=== PATIENT | male | born 1985 | race Two or more races ===

== ENCOUNTER 2024-01-17 13:58 | Inpatient (IN) | payer OTHER ==
[~2024-01-17] VITALS: Ht 175.3 cm; Wt 89.0 kg
[2024-01-17] MEDS ORDERED: ONDANSETRON HCL 4 MG/2 ML VIAL IV PRN (18:30)
[2024-01-17] MEDS ORDERED: HYDROcodone-ACET 5/325MG TAB PO PRN (18:30)
[2024-01-17] MEDS ORDERED: ACETAMINOPHEN 325 MG TAB PO PRN (18:30)
[2024-01-17] MEDS ORDERED: DOCUSATE SOD 100 MG CAP PO PRN (18:30)
[2024-01-17] MEDS ORDERED: SUCR1TAB31 OR (18:43)
[2024-01-17] MEDS ORDERED: OMEP20TA PO (18:43)
[2024-01-17 19:00] VITALS: BP 116/84; PULSE 71; RESP 16; TEMP 97.6; O2SAT 99
[2024-01-17 19:22] LABS: Basophils # (auto) 0 10 ^3/uL (0-0.2); Basophils % (auto) 0.7 % (0.0-2.0); Eosinophils # (auto) 0.2 10 ^3/uL (0-0.8); Eosinophils % (auto) 3.5 % (0.0-7.0); Hematocrit 28.7 % (41.0-53.0); Lymphocytes # (auto) 1.5 10 ^3/uL (0.4-5.4); Lymphocytes % (auto) 28.8 % (10.0-50.0); Mean Corpuscular Hemoglobin 31.4 pg (28.0-32.0); Mean Corpuscular Hgb Conc. 34.9 g/dL (32.0-36.0); Monocytes # (auto) 0.4 10 ^3/uL (0-1.3); Monocytes % (auto) 8.2 % (0.0-12.0); Neutrophils % (auto) 58.8 % (37.0-80.0); Nucleated Red Blood Cells % 0.3 %; Red Blood Cells 3.19 10^6/uL (4.5-5.90); Red Cell Distribution Width 12.9 % (11.8-14.3); White Blood Cell 5.1 10^3/uL (4.4-10.8)
[2024-01-17 19:45] LABS: Alanine Aminotransferase 15 U/L (7-40); Alkaline Phosphatase 49 U/L (46-116); Anion Gap 6 (5-15); Aspartate Aminotransferase 28 U/L (13-40); BUN/Creatinine Ratio 16.9 (10.0-20.0); Blood Urea Nitrogen 15 mg/dL (9-23); Calcium 8.9 mg/dL (8.7-10.4); Carbon Dioxide 24 mmol/L (20-30); Chloride 108 mmol/L (98-107); Glucose 87 mg/dL (74-106); Potassium 3.5 mmol/L (3.5-5.1); Sodium 138 mmol/L (136-145)
[2024-01-17 19:46] LABS: Bilirubin, Total 0.4 mg/dL (0.2-1.0); Total Protein 5.9 g/dL (5.7-8.2)
[2024-01-17 20:00] VITALS: PULSE 71; RESP 16; O2SAT 99
[2024-01-17 21:00] VITALS: BP 120/81; PULSE 86; RESP 17; TEMP 86; O2SAT 97
[2024-01-17] MEDS: SODIUM CHLOR 0.9% PF (SALINE LOCK) 10ML VIAL/SYR IV SCH (22:10)
[2024-01-17] MEDS: LACTATED RINGER'S 1,000 ML IV SCH (22:21)
[2024-01-17] MEDS: PANTOPRAZOLE 40 MG/10 ML VIAL INJ IV SCH (22:22)
[2024-01-18] VITALS (8 sets, daily range): BP systolic 106–138; BP diastolic 61–75; PULSE 58–84; RESP 17–19; TEMP 97.4–98.3; O2SAT 97–100
[2024-01-18 09:46] LABS: Urine Bacteria None Seen /hpf (None Seen)
[2024-01-18 10:02] LABS: Urine Blood Negative /uL (Negative); Urine Clarity Clear (Clear); Urine Color Yellow (Yellow); Urine Mucus FEW (None Seen); Urine Protein, UAD Negative (Negative); Urine Specific Gravity 1.022 (1.001-1.035); Urine Urobilinogen Normal (Negative); Urine WBC 1 /hpf (0 - 3)
[2024-01-18 12:32] LABS: Basophils # (auto) 0 10 ^3/uL (0-0.2); Basophils % (auto) 0.8 % (0.0-2.0); Eosinophils # (auto) 0.1 10 ^3/uL (0-0.8); Eosinophils % (auto) 3.1 % (0.0-7.0); Hematocrit 27.1 % (41.0-53.0); Hemoglobin 9.4 g/dL (13.5-17.5); Lymphocytes # (auto) 1.1 10 ^3/uL (0.4-5.4); Mean Corpuscular Hemoglobin 31.6 pg (28.0-32.0); Mean Corpuscular Hgb Conc. 34.8 g/dL (32.0-36.0); Mean Corpuscular Volume 90.6 fL (80.0-100.0); Monocytes # (auto) 0.2 10 ^3/uL (0-1.3); Monocytes % (auto) 5.6 % (0.0-12.0); Neutrophils # (auto) 2.4 10 ^3/uL (1.6-8.6); Neutrophils % (auto) 62.5 % (37.0-80.0); Nucleated Red Blood Cells % 0.2 %; Red Blood Cells 2.99 10^6/uL (4.5-5.90); Red Cell Distribution Width 13.2 % (11.8-14.3); White Blood Cell 3.8 10^3/uL (4.4-10.8)
[2024-01-18] MEDS: IRON SUCROSE COMPLEX 100 ML IV SCH (16:27)
[2024-01-19] VITALS (8 sets, daily range): BP systolic 103–131; BP diastolic 59–78; PULSE 78–92; RESP 18–19; TEMP 97.8–99; O2SAT 94–100
[2024-01-19 06:55] LABS: Chloride 109 mmol/L (98-107); Potassium 3.5 mmol/L (3.5-5.1); Sodium 142 mmol/L (136-145)
[2024-01-19 06:56] LABS: Anion Gap 6 (5-15); Carbon Dioxide 27 mmol/L (20-30)
[2024-01-19 06:57] LABS: Calcium 8.9 mg/dL (8.7-10.4)
[2024-01-19 06:58] LABS: Basophils # (auto) 0 10 ^3/uL (0-0.2); Basophils % (auto) 0.7 % (0.0-2.0); Eosinophils # (auto) 0.1 10 ^3/uL (0-0.8); Eosinophils % (auto) 3.2 % (0.0-7.0); Hematocrit 26.7 % (41.0-53.0); Hemoglobin 9.5 g/dL (13.5-17.5); Lymphocytes # (auto) 1.4 10 ^3/uL (0.4-5.4); Lymphocytes % (auto) 29.9 % (10.0-50.0); Mean Corpuscular Hgb Conc. 35.5 g/dL (32.0-36.0); Monocytes # (auto) 0.4 10 ^3/uL (0-1.3); Monocytes % (auto) 8.5 % (0.0-12.0); Neutrophils # (auto) 2.7 10 ^3/uL (1.6-8.6); Neutrophils % (auto) 57.7 % (37.0-80.0); Nucleated Red Blood Cells % 0.6 %; Red Blood Cells 2.96 10^6/uL (4.5-5.90); Red Cell Distribution Width 12.8 % (11.8-14.3); White Blood Cell 4.6 10^3/uL (4.4-10.8)
[2024-01-19 07:01] LABS: BUN/Creatinine Ratio 6.5 (10.0-20.0); Blood Urea Nitrogen 7 mg/dL (9-23); Glucose 91 mg/dL (74-106)
[2024-01-19] MEDS ORDERED: FLUMAZENIL 0.1 MG/ML INJ 10ML MDV IV ONE (09:07)
[2024-01-19] MEDS ORDERED: NALOXONE HCL 0.4 MG/ML VIAL ONE (09:07)
[2024-01-19] MEDS ORDERED: fentaNYL CITRATE 100 MCG/2 ML VL ONE (10:59)
[2024-01-19] MEDS ORDERED: KETAMINE 50mg/ML 1ml syringe ONE (10:59)
[2024-01-19] MEDS ORDERED: LIDOCAINE 1% INJ PF 5ML AMP ONE (10:59)
[2024-01-19] MEDS ORDERED: ONDANSETRON HCL 4 MG/2 ML VIAL ONE (10:59)
[2024-01-19] MEDS ORDERED: SODIUM CHLORIDE LOCK 10 ML ONE (10:59)
[2024-01-19] MEDS ORDERED: MIDAZOLAM HCL 2MG/2ML 2ml VIAL (1mg/ml) ONE (10:59)
[2024-01-19] MEDS ORDERED: PROPOFOL 10 MG/ML 20 ML IV ONE (10:59)
[2024-01-19] MEDS ORDERED: MORPHINE SULFATE INJ 2 MG/ml SYRG IV PRN (11:15)
[2024-01-19] MEDS ORDERED: HYDROmorphone HCL 2 MG/ML VL/or syr IV PRN ×2 (11:15)
[2024-01-19] MEDS ORDERED: fentaNYL CITRATE 100 MCG/2 ML VL IV PRN (11:15)
[2024-01-19] MEDS: METOCLOPRAMIDE HCL 5MG/ml INJ 2ml VIAL IV ONE (11:15)
[2024-01-19] MEDS: LIDOCAINE VISCOUS 2% 15ML UD ONE (11:20)
[2024-01-19] MEDS: SUCRALFATE 1 GM/10 ML ORAL SUSP PO SCH (17:56)
[2024-01-20 05:00] VITALS: BP 109/72; PULSE 61; RESP 17; TEMP 98.2; O2SAT 100
[2024-01-20 05:23] LABS: Basophils # (auto) 0 10 ^3/uL (0-0.2); Basophils % (auto) 0.7 % (0.0-2.0); Eosinophils # (auto) 0.1 10 ^3/uL (0-0.8); Hematocrit 26.9 % (41.0-53.0); Hemoglobin 9.5 g/dL (13.5-17.5); Lymphocytes # (auto) 1.5 10 ^3/uL (0.4-5.4); Lymphocytes % (auto) 35.7 % (10.0-50.0); Mean Corpuscular Hgb Conc. 35.3 g/dL (32.0-36.0); Mean Corpuscular Volume 90.5 fL (80.0-100.0); Monocytes # (auto) 0.3 10 ^3/uL (0-1.3); Monocytes % (auto) 7.6 % (0.0-12.0); Neutrophils # (auto) 2.2 10 ^3/uL (1.6-8.6); Nucleated Red Blood Cells % 0.5 %; Red Blood Cells 2.97 10^6/uL (4.5-5.90); Red Cell Distribution Width 13.5 % (11.8-14.3); White Blood Cell 4.2 10^3/uL (4.4-10.8)
[2024-01-20 08:00] VITALS: PULSE 73; RESP 19; O2SAT 99
[2024-01-20 09:00] VITALS: BP 111/62; PULSE 67; RESP 20; TEMP 97.6; O2SAT 97
[2024-01-20 13:23] VITALS: BP 107/70; PULSE 74; RESP 17; TEMP 98; O2SAT 97
== END 2024-01-20 14:10 | disposition home or self-care (01) | DRG 379 ==
LOC: CENTRAL 18:00
PROVIDERS: ADMIT Registered Nurse; ATTEND Internal Medicine
PROC: 0DB68ZX Excision of Stomach, Via Natural or Artificial Opening Endoscopic, Diagnostic (ICD-10-PCS; 2024-01-19)
PROC: 0DB98ZX Excision of Duodenum, Via Natural or Artificial Opening Endoscopic, Diagnostic (ICD-10-PCS; principal; 2024-01-19 11:22)
DX: K26.4 Chronic or unspecified duodenal ulcer with hemorrhage (principal); Z79.899 Other long term (current) drug therapy; D50.0 Iron deficiency anemia secondary to blood loss (chronic)
CPT/HCPCS: 36415; 71045; 80048; 80053; 81001; 83036; 85025; 86850; 86900; 86901; 93005; G0378; J1756; J2250; J2405; J2470; J2704